=== PATIENT | male | born 1990 | race Hispanic/Latino ===

== ENCOUNTER 2024-07-08 20:38 | Emergency (ER) | payer SELFPAY ==
[~2024-07-08] VITALS: Ht 180.3 cm; Wt 77.1 kg
[2024-07-08 21:30] VITALS: PULSE 73; RESP 19; TEMP 98.2
[2024-07-08] MEDS: TRAMADOL HCL 50 MG TAB PO ONE (23:30)
[2024-07-08] MEDS ORDERED: ULTRAM 50MG50 MG PO (23:47)
[2024-07-09 00:23] VITALS: BP 129/68; PULSE 84; RESP 18; TEMP 98; O2SAT 98
== END 2024-07-09 00:05 | disposition home or self-care (01) ==
LOC: ER 22:17
DX: M79.601 Pain in right arm (principal); S62.336A Displaced fracture of neck of fifth metacarpal bone, right hand, initial encounter for closed fracture; X50.1XXA Overexertion from prolonged static or awkward postures, initial encounter; Y92.89 Other specified places as the place of occurrence of the external cause
CPT/HCPCS: 99284